=== PATIENT | female | born 1985 | race Caucasian/White ===

== ENCOUNTER 2023-05-17 15:16 | Emergency (ER) | payer OTHER ==
[~2023-05-17] VITALS: Ht 157.5 cm; Wt 85.7 kg
[2023-05-17 15:20] VITALS: BP 138/85
--- NOTE | 2023-05-17 15:35 | NUR ---
38YO FEMALE PT C/O R SIDED PRESSURED HEADACHE AND NAUSEA X1WEEK. REPORTS SUDDEN ONSET. DENIES INJURY, CHANGE IN VISION, V/D, CHEST PAIN OR RELIEF AFTER MOTRIN. PT AAOX4, HOB POSITIONED PER COMFORT HX:HLD NKA
--- NOTE | 2023-05-17 15:50 | NUR ---
MEHRDAD WALKER AT BEDSIDE FOR EVALUATION
[2023-05-17] MEDS ORDERED: PROCHLORPERAZINE 10 MG/2 ML VIAL IM ONE (16:00)
[2023-05-17] MEDS ORDERED: ONDA-188 SL (16:13)
[2023-05-17] MEDS ORDERED: ACET-9496 PO (16:13)
--- NOTE | 2023-05-17 16:46 | NUR ---
Patient discharged with v/s stable. Written and verbal after care instructions given and explained. Patient verbalized understanding. Ambulatory with steady gait. All questions addressed prior to discharge. Advised to follow up with PMD.
== END 2023-05-17 16:45 | disposition home or self-care (01) ==
LOC: MED 15:16
DX: G43.909 Migraine, unspecified, not intractable, without status migrainosus (principal); Z79.899 Other long term (current) drug therapy
CPT/HCPCS: 96372; 99283; J0780; Q0163

== ENCOUNTER 2023-05-30 15:33 | Emergency (ER) | payer OTHER ==
[~2023-05-30] VITALS: Ht 162.6 cm; Wt 72.6 kg
[~2023-05-30 15:33] MED LIST: ACET-9496 PO; ONDA-188 SL
[2023-05-30 16:07] VITALS: BP 132/82; PULSE 69; RESP 18; TEMP 97.6; O2SAT 98
[2023-05-30] MEDS ORDERED: KETOROLAC 30 MG/ML VIAL IM ONE (16:35)
[2023-05-30] MEDS ORDERED: NAPR-1704 PO (16:41)
[2023-05-30] MEDS ORDERED: CAPS1ADH5 TP (16:41)
[2023-05-30 16:57] VITALS: O2SAT 98
== END 2023-05-30 18:00 | disposition home or self-care (01) ==
LOC: MED 15:33
DX: G44.209 Tension-type headache, unspecified, not intractable (principal); E78.5 Hyperlipidemia, unspecified; Z79.899 Other long term (current) drug therapy
CPT/HCPCS: 96372; 99283; J1885